=== PATIENT | female | born 1955 | race Caucasian/White ===

== ENCOUNTER 2018-02-15 10:17 | Inpatient (IN) | payer OTHER ==
[~2018-02-15] VITALS: Ht 144.8 cm; Wt 58.1 kg
[2018-02-15] MEDS ORDERED: COZAAR25 MG (10:27)
[2018-02-15] MEDS ORDERED: FENOFIBRATE160 MG (10:27)
[2018-02-15] MEDS ORDERED: SYNTHROID88 MCG (10:27)
== END 2018-02-17 11:12 | disposition designated cancer center or children's hospital (05) | DRG 282 ==
LOC: ER 10:17 → EDBD 10:42 → ER 10:42 → ICU 15:01
PROC: B246ZZZ Ultrasonography of Right and Left Heart (ICD-10-PCS; principal; 2018-02-15)
DX: I21.4 Non-ST elevation (NSTEMI) myocardial infarction (principal); I10 Essential (primary) hypertension; E03.8 Other specified hypothyroidism; E78.00 Pure hypercholesterolemia, unspecified; I24.9 Acute ischemic heart disease, unspecified

== ENCOUNTER 2018-03-01 16:22 | Emergency (ER) | payer OTHER ==
[~2018-03-01] VITALS: Ht 139.7 cm; Wt 56.7 kg
[~2018-03-01 16:22] MED LIST: COZAAR25 MG; FENOFIBRATE160 MG; SYNTHROID88 MCG
== END 2018-03-01 21:27 | disposition home or self-care (01) ==
LOC: ER 16:22
DX: R20.0 Anesthesia of skin (principal)

== ENCOUNTER 2018-11-24 08:30 | Outpatient (CLI) | payer OTHER | END 2018-11-24 08:31 | disposition home or self-care (01) | LOC: SONOGRAMA 08:30 | DX: E04.1 Nontoxic single thyroid nodule (principal) ==

== ENCOUNTER 2021-10-18 18:37 | Emergency (ER) | payer OTHER ==
[~2021-10-18] VITALS: Ht 142.2 cm; Wt 48.5 kg
== END 2021-10-18 21:09 | disposition home or self-care (01) ==
LOC: ER 18:37
DX: N81.10 Cystocele, unspecified (principal); R31.9 Hematuria, unspecified; Z88.6 Allergy status to analgesic agent; I10 Essential (primary) hypertension

== ENCOUNTER 2021-11-22 11:00 | Inpatient (IN) | payer OTHER ==
[~2021-11-22] VITALS: Ht 127 cm; Wt 49.0 kg
[2021-11-22] MEDS ORDERED: PLAVIX75 MG PO (14:56)
[2021-11-22] MEDS ORDERED: ADULT LOW DOSE81 M1 PO (14:57)
[2021-11-22] MEDS ORDERED: TOPROL XL25 M1 PO (14:57)
[2021-11-22] MEDS ORDERED: ATORVAS PO (14:58)
[2021-11-22] MEDS ORDERED: VITAMIN D PO (14:58)
[2021-11-27] MEDS ORDERED: FAMOTIDINE20 MG (10:30)
[2021-11-27] MEDS ORDERED: ALENDRONATE SOD70 MG (10:30)
[2021-11-27] MEDS ORDERED: ISOSORBIDE MONO30 M2 (10:30)
[2021-11-27] MEDS ORDERED: ATORVASTATIN CA40 MG (10:30)
[2021-11-27] MEDS ORDERED: MAXIMUM D3325 MCG (10:31)
[2021-11-27] MEDS ORDERED: LEVOTHYROXINE75 MCG (10:31)
[2021-11-28] MEDS ORDERED: IBU600 MG PO (07:39)
[2021-11-28] MEDS ORDERED: TANDEM PLUS CA1 EACH PO (07:41)
== END 2021-11-28 10:04 | disposition home or self-care (01) | DRG 743 ==
LOC: SURH 11-27 07:00 → OB/GYN 11-27 10:11 → O/R 11-27 10:11 → SURH 11-27 11:00 → OB/GYN 11-27 14:27
PROVIDERS: ADMIT Obstetrics & Gynecology Gynecology; ATTEND Obstetrics & Gynecology Gynecology
PROC: 0JQC0ZZ Repair Pelvic Region Subcutaneous Tissue and Fascia, Open Approach (ICD-10-PCS; 2021-11-27)
PROC: 0JQC0ZZ Repair Pelvic Region Subcutaneous Tissue and Fascia, Open Approach (ICD-10-PCS; 2021-11-27)
PROC: 0USG0ZZ Reposition Vagina, Open Approach (ICD-10-PCS; 2021-11-27)
PROC: 0UQF0ZZ Repair Cul-de-sac, Open Approach (ICD-10-PCS; 2021-11-27)
PROC: 0DUR0JZ Supplement Anal Sphincter with Synthetic Substitute, Open Approach (ICD-10-PCS; 2021-11-27)
PROC: 0TQC0ZZ Repair Bladder Neck, Open Approach (ICD-10-PCS; 2021-11-27)
PROC: 0UT97ZZ Resection of Uterus, Via Natural or Artificial Opening (ICD-10-PCS; principal; 2021-11-27 07:00)
DX: N80.0 Endometriosis of uterus (principal); N81.3 Complete uterovaginal prolapse; Z20.822 Contact with and (suspected) exposure to COVID-19; N84.0 Polyp of corpus uteri; N72 Inflammatory disease of cervix uteri